=== PATIENT | male | born 1965 | race Caucasian/White ===

== ENCOUNTER 2017-03-02 08:45 | Emergency (ER) | payer BC, OTHER ==
[2017-03-02] MEDS ORDERED: ONDANSETRON 4 MG/2 ML VIAL IVPB ONE (08:50)
[2017-03-02] MEDS ORDERED: SODIUM CHLORIDE 1,000 ML IV STA (08:50)
[2017-03-02] MEDS ORDERED: morphine CARPU-JECT 4 MG/1 ML DISP.SYRIN IVPUSH ONE (08:50)
[2017-03-02] MEDS ORDERED: KETOROLAC TROMETHAMINE 30 MG/1 ML VIAL IVPUSH ONE (08:58)
--- NOTE | 2017-03-02 08:59 | PDOC ---
History of Present Illness - General Chief Complaint: Pain, Acute Stated Complaint: RIGHT FLANK PAIN Time Seen by Provider: 03/02/17 08:50 History Source: Patient Exam Limitations: No Limitations - History of Present Illness Initial Comments: 03/02/17 08:56 52-year-old male with history of hyperlipidemia presents with right flank pain since morning. Patient reports a persistent colicky right-sided flank pain rating to the right mid abdomen. Reports some nausea but denies vomiting. Denies fevers, dysuria, hematuria. First-time episode. Past History - Past Medical History Allergies/Adverse Reactions: Allergies Allergy/AdvReac Type Severity Reaction Status Date / Time No Known Allergies Allergy Verified 03/02/17 09:17 Home Medications: Ambulatory Orders Atorvastatin Ca [Lipitor] 20 mg PO HS 05/27/16 Naproxen [Naprosyn -] 500 mg PO BID PRN #20 tablet 03/02/17 Ondansetron HCl [Zofran] 4 mg PO Q8H PRN #12 tablet 03/02/17 Oxycodone HCl/Acetaminophen [Percocet 5-325 mg Tablet] 1 tab PO Q8H PRN #12 tablet MDD 3 03/02/17 Hypercholesterolemia: Yes - Psycho/Social/Smoking Cessation Hx Anxiety: No Suicidal Ideation: No Smoking History: Never smoked Hx Alcohol Use: Yes Drug/Substance Use Hx: No Substance Use Type: Alcohol Review of Systems - Review of Systems Able to Perform ROS?: Yes Comments:: 03/02/17 08:57 GENERAL/CONSTITUTIONAL: No fever, weakness. HEAD, EYES, EARS, NOSE AND THROAT: No change in vision. No ear pain or discharge. No sore throat. CARDIOVASCULAR: No chest pain or shortness of breath. RESPIRATORY: No cough, wheezing, or hemoptysis. GASTROINTESTINAL: +Right sided abd pain and R flank pain. + nausea. No vomiting , diarrhea, or decreased PO intolerance. GENITOURINARY: No dysuria, frequency, or change in urination. MUSCULOSKELETAL: No joint or muscle swelling or pain. No neck or back pain. SKIN: No rash NEUROLOGIC: No headache, vertigo, loss of consciousness, or change in strength/ sensation. ENDOCRINE: No increased thirst. No abnormal weight change. HEMATOLOGIC/LYMPHATIC: No anemia, easy bleeding, or history of blood clots. ALLERGIC/IMMUNOLOGIC: No hives or skin allergy. *Physical Exam - Physical Exam Comments: 03/02/17 08:58 GENERAL: Awake, alert, and fully oriented, in no acute distress. HEAD: No signs of trauma EYES: PERRLA, EOMI, sclera anicteric, conjunctiva clear ENT: Auricles normal inspection, hearing grossly normal, nares patent, oropharynx clear without exudates. NECK: Normal ROM, supple, no lymphadenopathy, JVD, or masses LUNGS: Breath sounds equal, clear to auscultation bilaterally. No wheezes, and no crackles HEART: Regular rate and rhythm, normal S1 and S2, no murmurs, rubs or gallops ABDOMEN: +Right sided CVA tenderness. + R mid abd tenderness to palpation. Soft , normoactive bowel sounds. No guarding, no rebound. No masses EXTREMITIES: Normal range of motion, no edema. No clubbing or cyanosis. No cords, erythema, or tenderness NEUROLOGICAL: Cranial nerves II through XII grossly intact. Normal speech, normal gait SKIN: Warm, Dry, normal turgor, no rashes or lesions noted. ED Treatment Course - LABORATORY CBC & Chemistry Diagram: 03/02/17 08:55 03/02/17 08:55 - RADIOLOGY Radiology Studies Ordered: Category Date Time Status SPIRAL- RENAL-STONE CT [CT] Stat CT Scan 03/02/17 08:50 Ordered Medical Decision Making - Medical Decision Making 03/02/17 08:58 I suspect the patient is most likely having renal colic. Less than differential but she reconsiders appendicitis. We'll obtain labs, urinalysis, spiral CT of the abdomen pelvis, control pain and reassess. 03/02/17 10:24 CAT scan reviewed. There are punctate calcifications in the left side consistent with nonobstructing calculus. There is also one faint consultation with the urinary bladder which likely represents passed stone. There is a mild prominence of the right ureter but no hydro-nephrosis. There is some gallbladder wall calcification. CBC, BMP 03/02/17 08:55 03/02/17 08:55 CMP Sodium 138 mmol/L (136-145) 03/02/17 08:55 Potassium 4.6 mmol/L (3.5-5.1) 03/02/17 08:55 Chloride 105 mmol/L (98-107) 03/02/17 08:55 Carbon Dioxide 23 mmol/L (22-28) 03/02/17 08:55 Anion Gap 10 (8-16) 03/02/17 08:55 BUN 29 mg/dl (7-18) H 03/02/17 08:55 Creatinine 1.2 mg/dl (0.6-1.3) 03/02/17 08:55 Creat Clearance w eGFR > 60 (>60) 03/02/17 08:55 Random Glucose 178 mg/dl (74-106) H 03/02/17 08:55 Calcium 9.7 mg/dl (8.4-10.2) 03/02/17 08:55 Total Bilirubin 0.8 mg/dl (0.2-1.0) 03/02/17 08:55 AST 32 U/L (10-42) 03/02/17 08:55 ALT 32 U/L (10-40) 03/02/17 08:55 Alkaline Phosphatase 51 U/L (32-92) 03/02/17 08:55 Total Protein 7.0 g/dl (6.4-8.3) 03/02/17 08:55 Albumin 4.5 g/dl (3.5-5.0) 03/02/17 08:55 Lipase 24 U/L (22-51) 03/02/17 08:55 Urine Test Results Urine Color Yellow 03/02/17 08:55 Urine Appearance Clear 03/02/17 08:55 Urine pH 5.0 (4.5-8) 03/02/17 08:55 Ur Specific [place] >= 1.030 (1.005-1.025) H 03/02/17 08:55 Urine Protein 2+ (NEGATIVE) H 03/02/17 08:55 Urine Glucose (UA) Trace (NEGATIVE) 03/02/17 08:55 Urine Ketones Trace (NEGATIVE) 03/02/17 08:55 Urine Blood 3+ (NEGATIVE) H 03/02/17 08:55 Urine Nitrite Negative (NEGATIVE) 03/02/17 08:55 Urine Bilirubin 1+ (NEGATIVE) H 03/02/17 08:55 Ur Leukocyte Esterase Negative (NEGATIVE) 03/02/17 08:55 This is renal colic. Patient's pain improved drastically. Appears to have passed his stones. However, I explained incidental finding of gallbladder wall calcifications. This patient has a primary care physician. He has been given the results of the CAT scan and will follow up with his doctor for an outpatient ultrasound. Patient verbalizes understanding agrees with plan. He'll go home with his . I discussed the physical exam findings, ancillary test results and final diagnoses with the patient. I answered all of the patient's questions. The patient was satisfied with the care received and felt comfortable with the discharge plan and treatment plan. The patient will call their primary care physician within 24 hours to arrange follow-up and will return to the Emergency Department with any new, persistant or worsening symptoms. *DC/Admit/Observation/Transfer Diagnosis at time of Disposition: Renal colic on right side - Discharge Dispostion Disposition: HOME Condition at time of disposition: Improved Admit: No - Prescriptions Prescriptions: Naproxen [Naprosyn -] 500 mg PO BID PRN #20 tablet PRN Reason: Pain Level 1-5 Oxycodone HCl/Acetaminophen [Percocet 5-325 mg Tablet] 1 tab PO Q8H PRN #12 tablet MDD 3 PRN Reason: Pain Level 6-10 Ondansetron HCl [Zofran] 4 mg PO Q8H PRN #12 tablet PRN Reason: Nausea - Referrals Referrals: Filiberto Sands MD [Staff Physician] - - Patient Instructions Printed Discharge Instructions: Kidney Stones -- Adult Additional Instructions: Take 500 mg naproxen every 12 hours as needed for pain. For additional pain relief, take 1 tablet of percocet every 6 hours as needed for severe pain. Take 4 mg zofran every 8 hours as needed for nausea. Drink plenty of fluids and rest. Follow up with an urologist.
[2017-03-02 09:15] VITALS: TEMP 98; BMI 26.5
[2017-03-02 09:25] LABS: URINE APPEARANCE Clear; URINE BILIRUBIN 1+ (NEGATIVE); URINE GLUCOSE (UA) Trace (NEGATIVE); URINE KETONE Trace (NEGATIVE); URINE LEUK ESTERASE Negative (NEGATIVE); URINE NITRITE Negative (NEGATIVE); URINE UROBILINOGEN 1.0 E.U/dl (0.2-1.0)
[2017-03-02 09:26] VITALS: PULSE 67
[2017-03-02 09:27] LABS: URINE PROTEIN 2+ (NEGATIVE)
[2017-03-02 09:28] LABS: URINE COLOR YELLOW
[2017-03-02 09:31] LABS: BASOPHIL 0.8 % (0-2.0); EOSINOPHIL 0.9 % (0-4.5); MCH 28.4 pg (25.7-33.7); MCHC 33.9 g/dl (32.0-35.9); MEAN CELL VOLUME 83.8 fl (80-96); NEUTROPHILS 68.7 % (42.8-82.8); PLATELET COUNT 180 K/MM3 (134-434); RDW 12.8 % (11.9-15.9); WHITE BLOOD COUNT 8.6 K/mm3 (4.0-10.8)
[2017-03-02] MEDS ORDERED: SODIUM CHLORIDE 1,000 ML IV SCH (09:45)
[2017-03-02 09:53] LABS: ALBUMIN 4.5 g/dl (3.5-5.0); ALK PHOS 51 U/L (32-92); ANION GAP 10 (8-16); BILIRUBIN,TOTAL 0.8 mg/dl (0.2-1.0); CALCIUM 9.7 mg/dl (8.4-10.2); CO2 23 mmol/L (22-28); CREATININE 1.2 mg/dl (0.6-1.3); GLUCOSE,RANDOM 178 mg/dl (74-106); SGOT/AST 32 U/L (10-42); SGPT/ALT 32 U/L (10-40)
[2017-03-02 10:54] VITALS: BP 107/64
[2017-03-02 13:57] LABS: URINE BLOOD 3+ (NEGATIVE)
== END 2017-03-02 10:55 | disposition home or self-care (01) ==
LOC: FER 08:45
PROC: 3E0333Z Introduction of Anti-inflammatory into Peripheral Vein, Percutaneous Approach (ICD-10-PCS; principal; 2017-03-02)
PROC: 3E033NZ Introduction of Analgesics, Hypnotics, Sedatives into Peripheral Vein, Percutaneous Approach (ICD-10-PCS; 2017-03-02)
PROC: 3E033GC Introduction of Other Therapeutic Substance into Peripheral Vein, Percutaneous Approach (ICD-10-PCS; 2017-03-02)
PROC: 3E0337Z Introduction of Electrolytic and Water Balance Substance into Peripheral Vein, Percutaneous Approach (ICD-10-PCS; 2017-03-02)
DX: N23 Unspecified renal colic (principal); E78.5 Hyperlipidemia, unspecified
CPT/HCPCS: 36415; 74176; 80053; 81003; 81015; 83690; 85025; 87086; 99282-25

== ENCOUNTER 2019-04-24 11:43 | Emergency (ER) | payer OTHER ==
[2019-04-24 11:48] VITALS: TEMP 98.2; BMI 25.8
[2019-04-24] MEDS ORDERED: SODIUM CHLORIDE 1,000 ML IV ONE ×2 (11:53→13:32)
[2019-04-24] MEDS ORDERED: KETOROLAC TROMETHAMINE 30 MG/1 ML VIAL IVPUSH ONE (11:53)
[2019-04-24] MEDS ORDERED: KETOROLAC TROMETHAMINE 30 MG/1 ML VIAL ONE (11:54)
[2019-04-24] MEDS ORDERED: ONDANSETRON 4 MG/2 ML VIAL IVPB ONE (12:09)
--- NOTE | 2019-04-24 12:09 | PDOC ---
History of Present Illness - General Chief Complaint: Pain Stated Complaint: LEFT SIDED BACK, ABD PAIN Time Seen by Provider: 04/24/19 11:52 History Source: Patient Exam Limitations: No Limitations - History of Present Illness Initial Comments: 04/24/19 12:01 54y M hx of kidney stones presnts with L flank pain. Pt had a twinge of pain a few days ago that resolved spontaneusly with some hematuria that also resolved. This morning he had sudden onset of L flank pain associated with nausea that comes in waves. denies any vomting, fever/chills, dysuria, frequency, hematuria , diarrhea, melena, bpr, numnbess/tingling/weakness. PMD: Dr. masha HERNANDEZ Constitutional - no reported Fever, Chills, HEENT: no reported vision changes, sore throat Respiratory: no reported cough, sob, hemoptysis Cardiac: no reported chest pain, palpitations, light headedness, leg swelling Abd/GI: +L flank pain no reported abd pain, nausea, vomiting, blood per rectum, melena, diarrhea : no reported dysuria, frequency, discharge Musculskelatal - no reported back pain, joint swelling skin - no reported bruising, erythema, rash neurological: no reported headache, numbness, focal weakness, tingling, ataxia, hematologic: no reported easy bruising, easy bleeding Physical Exam GENERAL: The patient is awake, alert, and fully oriented,appears uncomfortable HEAD: Normocephalic, atraumatic. EYES: extraocular movements intact, sclera anicteric, conjunctiva clear. ENT: Normal voice, Moist mucous membranes. NECK: Normal range of motion, supple LUNGS: Breath sounds equal, clear to auscultation bilaterally. No wheezes, no rhonchi, no rales. HEART: Regular rate and rhythm, normal S1 and S2 without murmur, rub or gallop. ABDOMEN: Soft, nontender, No guarding, no rebound. No CVA tenderness EXTREMITIES: Normal range of motion, no edema. NEUROLOGICAL: No facial assymetry, Normal speech, PSYCH: Normal mood, normal affect. SKIN: Warm, Dry, normal turgor, suspect kidney stones zofra, toradol, fluids will ck cbc, cmp, ua Past History - Past Medical History Allergies/Adverse Reactions: Allergies Allergy/AdvReac Type Severity Reaction Status Date / Time No Known Allergies Allergy Verified 04/24/19 11:44 Home Medications: Ambulatory Orders Atorvastatin Ca [Lipitor] 20 mg PO HS 05/27/16 Cholecalciferol (Vitamin D3) [Vitamin D3 -] 5,000 unit PO DAILY 04/24/19 Tamsulosin HCl [Flomax] 0.4 mg PO DAILY #7 capsule 04/24/19 COPD: No Hypercholesterolemia: Yes Kidney Stones: Yes - Suicide/Smoking/Psychosocial Hx Smoking History: Never smoked Have you smoked in the past 12 months: No Information on smoking cessation initiated: No Hx Alcohol Use: (occasional) Drug/Substance Use Hx: No Substance Use Type: Alcohol *Physical Exam - Vital Signs Last Vital Signs Temp Pulse Resp BP Pulse Ox 98.2 F 58 L 18 122/69 96 04/24/19 11:43 04/24/19 11:43 04/24/19 11:43 04/24/19 11:43 04/24/19 11:43 ED Treatment Course - LABORATORY CBC & Chemistry Diagram: 04/24/19 11:59 04/24/19 12:00 Medical Decision Making - Medical Decision Making 04/24/19 13:12 labs reviewed +hematuria pt again in pain, will give dose of morphine will obtain CT to furthe revaluate stone 04/24/19 15:11 ct negative for stones no signs of appendicits, diverticultitis, AAA pt feels improved abd soft nontender consider possible msk cause of pain will dc with pmd fu strict returnp recautions were discussed I discussed the physical exam findings, ancillary test results and final diagnoses with the patient. I answered all of the patient's questions. The patient was satisfied with the care received and felt comfortable with the discharge plan and treatment plan. The patient will call their primary care physician within 24 hours to arrange follow-up and will return to the Emergency Department with any new, persistent or worsening symptoms. *DC/Admit/Observation/Transfer Diagnosis at time of Disposition: Left flank pain - Discharge Dispostion Disposition: HOME Condition at time of disposition: Improved Decision to Admit order: No - Referrals Referrals: Trupti Rich MD [Primary Care Provider] - - Patient Instructions Additional Instructions: Return to the emergency department immediately with ANY new, persistent or worsening symptoms including numbness, tingling, weakness, fevers or any other concerns. Take ibuprofen (400mg)/tylenol(650mg) every 6 hours for 2 days. Apply heat to your sore muscles. You MUST call and follow up with your doctor in 3-4 days for further evaluation of your symptoms. Your emergency department visit is not complete without a followup with your doctor for reevaluation.. Results were discussed with you. Please make sure your doctor reviews the results of your emergency evaluation. Print Language: SAMOAN - Post Discharge Activity
[2019-04-24] MEDS ORDERED: ONDANSETRON 4 MG/2 ML VIAL ONE (12:10)
[2019-04-24 12:19] LABS: EOS % 1.2 % (0-4.5); HEMATOCRIT 46.3 % (35.4-49); HEMOGLOBIN 15.6 GM/dl (11.7-16.9); LYMPH % 41.1 % (8-40); MCH 28.5 pg (25.7-33.7); MCHC 33.7 g/dl (32.0-35.9); MEAN CELL VOLUME 84.8 fl (80-96); MEAN PLT VOLUME 9.9 fl (7.5-11.1); MONO % 5.9 % (3.8-10.2); NEUT % 50.8 % (42.8-82.8); PLATELET COUNT 179 K/MM3 (134-434); RBC 5.46 M/mm3 (4.00-5.60); RDW 12.5 % (11.9-15.9); WHITE BLOOD COUNT 6.9 K/mm3 (4.0-10.8)
[2019-04-24 12:26] LABS: ALBUMIN 4.5 g/dl (3.4-5.0); BILIRUBIN,TOTAL 1.4 mg/dl (0.2-1); CALCIUM 9.6 mg/dl (8.5-10); CREATININE 1.2 mg/dl (0.55-1.3); POTASSIUM 4.2 mmol/L (3.5-5.1); TOT PROT 7.3 g/dl (6.4-8.2)
[2019-04-24] MEDS ORDERED: morphine CARPU-JECT 4 MG/1 ML DISP.SYRIN IVPUSH ONE (13:08)
[2019-04-24] MEDS ORDERED: morphine SULFATE 4 MG/ML VIAL ONE (13:12)
[2019-04-24] MEDS ORDERED: HYDROmorphone HCL CARPU-JECT 1 MG/1 ML DISP.SYRIN IVPUSH ONE (13:31)
[2019-04-24] MEDS ORDERED: HYDROmorphone HCL CARPU-JECT 1 MG/1 ML DISP.SYRIN ONE (13:37)
[2019-04-24 15:50] VITALS: BP 121/79; PULSE 62
== END 2019-04-24 15:30 | disposition home or self-care (01) ==
LOC: FER 11:43
PROC: 3E033NZ Introduction of Analgesics, Hypnotics, Sedatives into Peripheral Vein, Percutaneous Approach (ICD-10-PCS; principal; 2019-04-24)
PROC: 3E0337Z Introduction of Electrolytic and Water Balance Substance into Peripheral Vein, Percutaneous Approach (ICD-10-PCS; 2019-04-24)
PROC: 3E033GC Introduction of Other Therapeutic Substance into Peripheral Vein, Percutaneous Approach (ICD-10-PCS; 2019-04-24)
PROC: 3E0333Z Introduction of Anti-inflammatory into Peripheral Vein, Percutaneous Approach (ICD-10-PCS; 2019-04-24)
DX: R10.9 Unspecified abdominal pain (principal)
CPT/HCPCS: 36415; 74176-TC; 80053; 81003; 81015; 85025; 99285-25; J7030